=== PATIENT | male | born 1970 | race Caucasian/White ===

== ENCOUNTER → 2018-04-08 | Outpatient (CLI) | payer BC ==
[2014-10-03 16:25] VITALS: BP 138/88
[~2018-04-08] MED LIST: ALBU6.7H IH; IBUP200T44 PO; IOHEXOL 240 MG/ML 50ML VIAL. ONE; IOHEXOL 300 MG/ML 75 ML VIAL. IV ONE; LEVO750T31 PO; TRAM50TA PO
--- NOTE | 2018-04-08 14:05 | RAD ---
CT ABD PELV W/ORAL IV CONTRAST Indication: epigastric pain x 2weeks worse in 2 days Exposure: One or more of the following individualized dose reduction techniques were utilized for this examination: 1. Automated exposure control 2. Adjustment of the mA and/or kV according to patient size 3. Use of iterative reconstruction technique. Comparison: January 25, 2016 Contrast: Intravenous contrast was given. Oral contrast was given. FINDINGS: Lower thorax: Small partially visualized nodule in the left lower lobe medially, on the uppermost slice, measures 5 mm. Suggestion of a small faint central calcification. Not seen previously but may not have been included in the area of coverage. Question additional tiny nodule measuring 3 mm at the right anterior lung on the uppermost slice, may just be vascular branching cross-section. Liver: Low-density compatible with steatosis. Spleen: Unremarkable Pancreas: Unremarkable Adrenals: No evidence of mass. Kidneys: Hypodense lesion upper pole right kidney stable. Right kidney lower pole lesion is slightly hyperdense, 24 Hounsfield units. Measures 19 mm diameter, compared with 16 mm previously. Several additional smaller hypodense lesions of the kidneys appears similar. Urinary tracts: No hydronephrosis. Gallbladder: No calcified stone Lymph nodes: No significant enlargement Vessels: There is an accessory left renal artery. No aortic aneurysm. Mild atherosclerotic calcification. GI tract: No evidence of acute colitis. No evidence of bowel obstruction. Appendix is normal. Reproductive organs:No evidence of mass. Urinary bladder: Mild wall thickening, diffuse and uniform. Peritoneum: No evidence of pneumoperitoneum. No free fluid. Abdominal wall:Unremarkable Spine: Vertebral body height and alignment are intact. Bones: No destructive process identified. External Soft Tissue: Mild focal ill-defined density within the left posterior flank upper gluteal region, may represent a small contusion or area of scarring. Not present on prior study. IMPRESSION: 1. Partially visualized nodule in the left lung base, measures at least 5 mm. Question of central calcification which could indicate benign nature, but given its incomplete evaluation, consider nonemergent CT chest for further evaluation. 2. Lesion at the lower pole the right kidney is mildly hyperdense, and demonstrates a slight increase in size since prior study, now 19 mm, compared with 16 mm on similar previous slice. May represent a hemorrhagic cyst, but recommend further evaluation with nonemergent ultrasound of the kidneys. 3. Question mild urinary bladder wall thickening, to some degree this may be due to incomplete distention. Mild bladder outlet obstruction or mild cystitis could be considered. Electronically signed by: Niels Hinson MD (04/08/2018 2:01 PM) [facility]
== END | disposition home or self-care (01) ==
LOC: CT 04-07 12:24
PROVIDERS: ATTEND Nurse Practitioner Family
DX: N28.89 Other specified disorders of kidney and ureter (principal); I70.0 Atherosclerosis of aorta; R91.1 Solitary pulmonary nodule
CPT/HCPCS: 74177; Q9966; Q9967